=== PATIENT | female | born 1970 | race Caucasian/White ===

== ENCOUNTER 2021-09-14 21:16 | Emergency (ER) | payer OTHER ==
[~2021-09-14] VITALS: Ht 175.3 cm; Wt 56.2 kg
[2021-09-14 21:22] VITALS: BP 113/63
[2021-09-14] MEDS ORDERED: LIDOCAINE 1% INJ 50 ML MDV IJ ONE (21:26)
[2021-09-14] MEDS ORDERED: TDAP [DIPH/PERTUSSIS/TET] 0.5 ML VIAL IM ONE ×2 (21:30→21:44)
--- NOTE | 2021-09-14 21:46 | NUR ---
[employer] @ BEDSIDE SUTURING.
== END 2021-09-14 22:14 | disposition home or self-care (01) ==
LOC: ER 21:16
DX: S61.213A Laceration without foreign body of left middle finger without damage to nail, initial encounter (principal); W26.0XXA Contact with knife, initial encounter; Y93.89 Activity, other specified; Y92.89 Other specified places as the place of occurrence of the external cause; Y99.8 Other external cause status
CPT/HCPCS: 12001; 90471; 90715; 99283; A6403; J3490